=== PATIENT | female | born 1975 | race Caucasian/White ===

== ENCOUNTER 2021-07-27 16:00 | Outpatient (RCR) | payer MEDICAID, SELFPAY | END 2021-08-21 15:51 | disposition home or self-care (01) | LOC: PT.CARL 16:00 | PROVIDERS: Visit Provider Nurse Practitioner Family | DX: M25.512 Pain in left shoulder (principal) | CPT/HCPCS: 20560; 97010; 97012; 97014; 97033; 97035; 97110; 97140; 97163; 97164; G0283 ==

== ENCOUNTER 2023-03-11 10:47 | Emergency (ER) | payer MEDICAID, SELFPAY ==
[2023-03-11 12:00] VITALS: BP 139/85; PULSE 91; RESP 19; TEMP 37; O2SAT 99; BMI 23.3
[2023-03-11 12:15] LABS: UTC Strep Screen (Rapid) Positive (Negative)
--- NOTE | 2023-03-11 12:24 | EXP.UTC ---
Discharge Plan Disposition Patient Disposition: Home, Self-Care Condition: Good Prescriptions Prescriptions: New amoxicillin 875 mg tablet 875 mg PO BID Qty: 20 0RF No Action citalopram 40 mg tablet 40 mg PO DAILY Patient Comments: take 1 tablet (40 mg) by mouth once daily levothyroxine 100 mcg tablet 100 mcg PO DAILY Patient Comments: TAKE ONE TABLET BY MOUTH EVERY MORNING on an empty stomach atomoxetine 40 mg capsule 40 mg PO DAILY Patient Comments: take 1 capsule (40 mg) by mouth once daily in the morning Referrals Follow up/Referrals: Zainab Rivas [Primary Care Provider] - See instructions Activity Restrictions/Add. Instructions Additional Instructions/Restrictions: *Monitor Temp, Over the counter Motrin or Tylenol as directed/as needed Tylenol every 4 hours and Motrin every 6 hours (as long as your family doctor has told you that you can take it) for fever or pain. and straight to ER if unable to lower temp less than 101.0 after medication given *Warm salt water gargles may help to soothe the throat *Throat Lozenges? *Warm fluids like tea with honey may help to soothe the throat? *Sleep elevated *Humidifier/Vaporizer * *If you did not take Penicillin shot or was unable to, start taking antibiotic immediately and make sure that you take it for the FULL length of time although you should start to feel better in 24-48 hours *change toothbrush and toothpaste 24-48 hours after starting to take antibiotics so you do not reinfect yourself Monitor Temp. Tylenol and/or Ibuprofen as needed. ER if fever is no less than 101 despite alternating Tylenol and Ibuprofen * Encourage fluids, water, Gatorade, powerade, pedialyte if /toddler/or child *Cold fluids, popsicles and ice cream may feel good on his throat Follow up IMMEDIATELY for new or worsening symptoms or no Noticeable improvement over the next 48-72 hours. 911 for difficulty breathing or swallowing Clinical Impressions Clinical Impression: Strep throat Instructions Patient Instructions: DI for Strep Throat, Strep Throat, Amoxicillin Discharge ED Provider: Samina Molina [facility] [place] General Stated complaint: sore throat, roberts, ear pain, difficulty swallowing Mode of Arrival: Ambulatory Source of Information: Patient Limitations: No Limitations Time Seen by Provider: 03/11/23 12:24 Description of Symptoms (Recalled from Triage Doc. by RN): sore throat, ROBERTS, ear pain, and cough HEENT Symptoms (Recalled from RN notes): Yes Resp Symptoms (Recalled from RN notes): No Skin Symptoms (Recalled from RN notes): No MS Symptoms (Recalled from RN notes): No Functional Status (Recalled from RN notes): n/a History of Present Illness Provider Complaint: Patient states that she started feeling bad on Saturday States that she is having bilateral ear pain and pressure, sore throat with tonsils swollen headache, body aches and cough Related Data Home Medications Medication Instructions Recorded Confirmed atomoxetine 40 mg capsule 40 mg PO DAILY 03/11/23 03/11/23 citalopram 40 mg tablet 40 mg PO DAILY 03/11/23 03/11/23 levothyroxine 100 mcg tablet 100 mcg PO DAILY 03/11/23 03/11/23 Previous Rx's Medication Instructions Recorded amoxicillin 875 mg tablet 875 mg PO BID #20 tabs 03/11/23 Allergies Allergy/AdvReac Type Severity Reaction Status Date / Time No Known Allergies Allergy Verified 03/11/23 12:16 Worker's Comp Is this a Worker's Comp case?: No [facility] Disclaimer: The information contained in this section may have been updated after the patient was seen, as this information can be updated by other users. Social History Smoking Status: Unknown if ever smoked alcohol intake: never current occupational status: employed Travel in the last 8 weeks: None ROS Obtained: Yes All systems reviewed & no additional complaints except as documented and Ye
[2023-03-11 12:51] VITALS: BP 139/85; PULSE 91; RESP 19; TEMP 37; O2SAT 99
== END 2023-03-11 12:51 | disposition home or self-care (01) ==
PROVIDERS: Emergency Provider Nurse Practitioner; PCP Nurse Practitioner Family
DX: J02.0 Streptococcal pharyngitis; H92.03 Otalgia, bilateral
CPT/HCPCS: 87880; 99204; 99212; G0463

== ENCOUNTER 2023-06-17 16:00 | Outpatient (RCR) | payer MEDICAID, SELFPAY | END 2023-07-18 15:51 | disposition home or self-care (01) | LOC: PT 16:00 | PROVIDERS: PCP Nurse Practitioner Family; Visit Provider Orthopaedic Surgery Adult Reconstructive Orthopaedic Surgery | DX: M25.512 Pain in left shoulder (principal) | CPT/HCPCS: 20560; 97010; 97014; 97035; 97110; 97140; 97163; G0283 ==

== ENCOUNTER 2024-05-11 13:00 | Outpatient (RCR) | payer MEDICAID, SELFPAY | END 2024-05-14 23:59 | disposition home or self-care (01) | LOC: PT 13:00 | PROVIDERS: Visit Provider Orthopaedic Surgery Adult Reconstructive Orthopaedic Surgery | DX: M25.512 Pain in left shoulder (principal); Z98.890 Other specified postprocedural states | CPT/HCPCS: 97014; 97110; 97140; 97163; 97530; G0283 ==

== ENCOUNTER 2024-06-11 09:00 | Outpatient (RCR) | payer MEDICAID, SELFPAY | END 2024-06-11 23:59 | disposition home or self-care (01) | LOC: PT 09:00 | PROVIDERS: Visit Provider Orthopaedic Surgery Adult Reconstructive Orthopaedic Surgery | DX: M25.512 Pain in left shoulder (principal); M75.102 Unspecified rotator cuff tear or rupture of left shoulder, not specified as traumatic; Z98.890 Other specified postprocedural states | CPT/HCPCS: 97014; 97110; 97164; 97530; G0283 ==